=== PATIENT | male | born 1965 | race Caucasian/White ===

== ENCOUNTER 2023-09-02 06:47 | Outpatient (CLI) | payer OTHER, SELFPAY ==
--- NOTE | ~2023-09-02 | MR_ITS ---
MRI of the right shoulder Technique: Axial proton-density fat-sat images, coronal proton density fat-sat and T2 fat-sat images, and sagittal T1-weighted and T2 fat-sat images were acquired. Clinical History: Rotator cuff insufficiency Findings: There is moderate AC joint degenerative change, with biparietal change of the distal clavic le. Coracoclavicular, coracoacromial, and coracohumeral ligaments are intact. There is complete, full-thickness tear involving the entire supraspinatus tendon, with fluid-filled g ap measuring approximately 3.0 x 2.0 cm in extent. Infraspinatus tendon is intact, without partial or full-thickness tear. Subscapularis tendon is intact, with severe tendinosis. Tendon of the long head of the biceps is intact. Possible subtle degenerative tearing of the superior labrum. Inferior glenohumeral ligament is intact. Small glenohumeral joint effusion present with fluid passin g through the rotator cuff defect into the subacromial/subdeltoid bursa. No degenerative change of th e glenohumeral joint. No muscle atrophy or edema. 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 Suspected subtle degenerative tearing of the superior labrum. Moderate AC joint degenerative change. Severe subscapularis tendinosis. Reviewed, dictated and finalized at [facility]. Impression: Complete, full-thickness tear involving the entirety of the supraspinatus tendo n, as detailed above. Suspected subtle degenerative tearing of the superior labrum. Moderate AC joint degenerative change. Severe subscapularis tendinosis.
== END 2023-09-02 06:48 | disposition home or self-care (01) ==
PROVIDERS: Visit Provider Physician Assistant
DX: M75.121 Complete rotator cuff tear or rupture of right shoulder, not specified as traumatic (principal); M19.011 Primary osteoarthritis, right shoulder
CPT/HCPCS: 73221

== ENCOUNTER 2023-12-15 07:00 | Outpatient (NON) | payer OTHER, SELFPAY | END 2023-12-15 07:01 | disposition home or self-care (01) | LOC: ANHLAB 12-16 07:12 | PROVIDERS: PCP Family Medicine Sports Medicine; Visit Provider Internal Medicine Gastroenterology | DX: Z12.11 Encounter for screening for malignant neoplasm of colon (principal) | CPT/HCPCS: 88305 ==

== ENCOUNTER 2023-12-15 08:31 | Day surgery (SDC) | payer OTHER, SELFPAY ==
[2023-11-26 11:53] VITALS: BMI 27.8
[2023-12-01 10:04] VITALS: BMI 26.1
[2023-12-15 10:32] VITALS: BP 110/72; PULSE 65; RESP 17; TEMP 36.8; O2SAT 98; BMI 25.7
--- NOTE | 2023-12-15 10:34 | PM.HPGS ---
History of Present Illness History of Present Illness Consent: Risks, benefits, and alternatives have been discussed and questions answered. Patient agrees to proceed with procedure. Chief complaint: Screening neoplasm of colon, Crohns Narrative: Kevin Wong is a 57 year old male presents for screening colonoscopy. The patient has a history of Crohn's disease. He had a to section because of Crohn's disease in 1996. Patient reports his current weight appetite bowel movements are normal. He is on no specific therapy for bowel disease at present. His last colonoscopy 5 years ago was unremarkable. Patient's family history is noncontributory. Patient is a for screening colonoscopy. He reports 3 weeks ago had surgery for right rotator cuff injury. Review of Systems Review of Systems: All systems reviewed & are unremarkable except as noted in HPI and below PMFSH Social History Social History Smoking status: Never smoker Alcohol intake: current Substance use: never Substance use type: does not use Living arrangements: with family Spiritual care concerns: No Meds Home Medications and Allergies Home Medications Medication Instructions Recorded Confirmed Type ascorbic acid (vitamin C) 500 mg 500 mg PO DAILY 12/01/23 12/15/23 History chewable tablet (Vitamin C) cholecalciferol (vitamin D3) 50 50 mcg PO DAILY 12/01/23 12/15/23 History mcg (2,000 unit) capsule (Vitamin D3) paroxetine HCl 20 mg tablet 20 mg PO DAILY 12/01/23 12/15/23 History celecoxib 200 mg capsule mg 12/15/23 History Allergies Allergy/AdvReac Type Severity Reaction Status Date / Time No Known Allergies Allergy Verified 12/15/23 10:16 Exam Narrative: Physical exam reveals patient to be alert. Vital signs stable. HEENT exam is unremarkable. Patient is anicteric. Lungs are clear to auscultation and to percussion. Heart is without murmur or extra sounds. Abdomen bowel sounds are present soft nontender with no organomegaly. Digital external rectal exam normal. Assessment and Plan Assessment and plan (1) Screen for colon cancer: Code(s): Z12.11 - Encounter for screening for malignant neoplasm of colon Status: Acute Assessment and Plan: Patient presents today for screening colonoscopy. He has a distant history of terminal ileal resection for Crohn's disease. Clinically he is on no medications. (2) Crohn's disease: Code(s): K50.90 - Crohn's disease, unspecified, without complications Status: Acute Assessment and Plan: Patient has a given history of Crohn's disease with a history of ileal resection in 1996. No history of recent flare of disease. Currently appears to be in clinical remission. surveillance colonoscopy advised at 5 year intervals.
[2023-12-15] MEDS: LACTATED RINGERS 1,000 ML 150 ML IV CONT (10:48)
--- NOTE | 2023-12-15 10:53 | P.PNAN_ITS ---
Anes - Initial Pre Proc Eval Procedure: Operation Date: 12/15/23 11:00 Proposed Procedures p Screening Colonoscopy - Tylor Peña MD Date/Time: 12/15/23 10:53 Surgeon: Tylor Peña MD Pre Op Diagnosis: Screening neoplasm of colon, Crohns Patient Data Age: 57 Gender: M Height: 1.8 m Weight: 83.85 kg Last Vital Signs Temp 36.8 C 12/15/23 10:32 Pulse 65 12/15/23 10:32 Resp 17 12/15/23 10:32 BP 110/72 12/15/23 10:32 Pulse Ox 98 12/15/23 10:32 O2 Del Method Room Air 12/15/23 10:32 Allergies Allergy/AdvReac Type Severity Reaction Status Date / Time No Known Allergies Allergy Verified 12/15/23 10:16 Home Medications Medication Instructions Recorded Confirmed Type ascorbic acid (vitamin C) 500 mg 500 mg PO DAILY 12/01/23 12/15/23 History chewable tablet (Vitamin C) cholecalciferol (vitamin D3) 50 50 mcg PO DAILY 12/01/23 12/15/23 History mcg (2,000 unit) capsule (Vitamin D3) paroxetine HCl 20 mg tablet 20 mg PO DAILY 12/01/23 12/15/23 History celecoxib 200 mg capsule mg 12/15/23 History Patient hx anesthesia problems: none Family hx anesthesia problems: none Results Review: All pre-operative results and documents have been reviewed as part of the pre- operative evaluation. [facility] Past Medical History Medical History (Updated 12/15/23 @ 10:53 by Rajinder Mendez MD) Crohn's disease Surgical History Surgical History (Updated 12/15/23 @ 10:53 by Rajinder Mendez MD) History of bowel resection Social History Social History Smoking status: Never smoker Alcohol intake: current Substance use: never Substance use type: does not use Living arrangements: with family Spiritual care concerns: No Anes - Eval Final PreProcedure Day of Procedure 12/15/23 10:53 Patient weight: normal Heart: regular rate and rhythm Lungs: clear to auscultation Airway: Mallampati scale class II Neurological: alert and oriented Last oral intake: >/= 8 hours ASA classification: II Emergent: no Anesthetic plan: proceed Anesthesia type and monitoring: general GIVS and standard monitoring Results Review: All pre-operative results and documents have been reviewed as part of the pre- operative evaluation. Informed Consent: The patient's anesthetic plan and its attendant risks and benefits were discussed with the patient/family/POA. Questions were solicited and answers provided to the satisfaction of the patient/family/POA.
[2023-12-15 11:40] VITALS: BP 102/59; PULSE 62; RESP 14; O2SAT 98
[2023-12-15 11:50] VITALS: BP 107/67; PULSE 57; RESP 16; O2SAT 98
[2023-12-15 12:00] VITALS: BP 106/76; PULSE 59; RESP 16; O2SAT 100
--- NOTE | 2023-12-15 12:14 | WPDANESPN ---
Anes - Prog Note Post-Op Date/Time: 12/15/23 12:14 Cardiovascular status: normal Respiratory status: normal Airway patency: baseline Mental status: baseline Post-Op hydration status: normal Vital Signs: Last Vital Signs Temp 36.8 C 12/15/23 10:32 Pulse 59 L 12/15/23 12:00 Resp 16 12/15/23 12:00 BP 106/76 12/15/23 12:00 Pulse Ox 100 12/15/23 12:00 O2 Del Method Room Air 12/15/23 12:00 Pain Score (VAS): 0/10 I/O: Intake & Output 12/14/23 12/15/23 12/15/23 23:59 07:59 15:59 Intake Total 600 Balance 600 Patient Feedback: Patient satisfied with anesthetic care.
--- NOTE | 2023-12-15 12:19 | SUR.PHASEII ---
1200; PT WAITING FOR RIDE
== END 2023-12-15 12:18 | disposition home or self-care (01) ==
PROVIDERS: PCP Family Medicine Sports Medicine; Visit Provider Internal Medicine Gastroenterology
PROC: 0DJD8ZZ Inspection of Lower Intestinal Tract, Via Natural or Artificial Opening Endoscopic (ICD-10-PCS; CPT 45378; principal; 2023-12-15 11:00)
DX: Z12.11 Encounter for screening for malignant neoplasm of colon (principal); D12.5 Benign neoplasm of sigmoid colon; K63.89 Other specified diseases of intestine; K64.8 Other hemorrhoids
CPT/HCPCS: 45385